=== PATIENT | female | born 1945 | race Caucasian/White ===

== ENCOUNTER → 2016-12-26 | Outpatient (CLI) | payer MEDICARE ==
[~2016-12-26] MED LIST: ALBUTEROL17 GM INH; AMBIEN10 MG PO; ATORVASTATIN CA10 MG PO; BONIVA150 MG PO; DULOXETINE HCL30 MG PO; FLEXERIL PO; MEDROL PO; PREDNISONE PO; VICODIN 5/500 T1 TAB PO
--- NOTE | ~2016-12-26 | MY29 ---
[facility] A Service of [facility] RADIOLOGY TEXT RESULTS PATIENT: SAGE ARMANDO LOCATION: [facility] : 43 UNIT #: [id number] AGE: [address]: Shantell Cannon APRN SEX: F ORDER DR: [id number] [facility] [address]. [place], [place] [address] [id number] O MR#: [id number] Acc #: [id number] NAME: SAGE ARMANDO : 1945 SEX: F STUDY DATE/TIME: 12/26/2016 12:51 UNIT: [facility] ROOM: STUDY DESCRIPTION: [facility] SCREENING W/ CAD BILAT Attending Physician: Shantell Cannon A.P.R.N. Referring Physician: Shantell Cannon A.P.R.N. Ordering Physician: Shantell Cannon A.P.R.N. Primary Care Physician: Shantell Cannon A.P.R.N. MEDICAL IMAGING REPORT This report is preliminary unless electronic signature is present EXAM Bilateral digital screening mammogram with CAD 12/26/2016. INDICATIONS 71-year-old female for routine screening. No reported problems and no personal or family history of breast cancer. No surgeries. TECHNIQUE CC, MLO, and implant displaced views of the breasts were obtained and reviewed with an FDA-approved CAD device. COMPARISON 12/16/2014, 07/13/2009. FINDINGS Bilateral retroglandular silicone type implants are present. Configuration and appearance is unchanged. Breast parenchyma is composed of scattered fibroglandular densities and stable. There is no new dominant nodule, mass, or suspicious cluster of microcalcifications. Capsular calcifications present bilaterally with minimal irregularity of the left breast implant. Benign intramammary node present on the right and unchanged in the upper outer quadrant. IMPRESSION Benign screening mammogram; 1-year follow-up recommended. Patients over the age of 40 are entered into a reminder system with target due date for the next mammogram. A result letter will also be sent to the patient. BIRADS: 2 Benign finding. STS. [facility] A Service of [facility] RADIOLOGY TEXT RESULTS PATIENT: SAGE ARMANDO LOCATION: [facility] : 43 UNIT #: [id number] AGE: [address]: Shantell Cannon APRN SEX: F ORDER DR: Dictated by... Cristo Pal M.D. THIS IS AN ELECTRONICALLY VERIFIED REPORT Cristo Pal M.D. at 12/26/2016 4:25 PM Neto TD: 12/26/2016 14:51 JOB #: [id number] MEDICAL IMAGING REPORT Page 1 of 1 COPY
== END | disposition home or self-care (01) ==
LOC: CWCC 11:56
DX: Z12.31 Encounter for screening mammogram for malignant neoplasm of breast (principal)
CPT/HCPCS: G0202